=== PATIENT | male | born 1995 | race Caucasian/White ===

== ENCOUNTER 2017-10-26 16:42 | Emergency (ER) | payer SELFPAY ==
[~2017-10-26] VITALS: Ht 175.3 cm; Wt 70.3 kg
[2017-10-26 18:00] LABS: ABSOLUTE BASOPHIL COUNT 0 /CUMM (0.0-0.2); ABSOLUTE EOSINOPHIL COUNT 0.1 /CUMM (0.0-0.7); ABSOLUTE GRANULOCYTE CT 3.6 /CUMM (1.4-6.5); ABSOLUTE LYMPH COUNT 2.1 /CUMM (1.2-3.4); ABSOLUTE MONOCYTE COUNT 0.3 /CUMM (0.10-0.60); BASOPHIL % 0.4 % (0.0-2.0); EOSINOPHIL % 1.4 % (0-5); GRANULOCYTE % 58.6 % (42.2-75.2); HEMATOCRIT 42.3 % (42-52); MEAN CORPUSCULAR HGB CONC 34.4 G/DL (33.0-37.0); MEAN CORPUSCULAR VOLUME 87.2 FL (80.0-94.0); MEAN PLATELET VOLUME 8.6 FL (7.4-10.4); PLATELET COUNT 185 /CUMM (130-400); RBC DISTRIBUTION WIDTH 14.1 % (11.5-14.5); RED BLOOD CELL CT 4.85 /CUMM (4.70-6.10); WHITE BLOOD CELL COUNT 6.1 /CUMM (4.8-10.8)
--- NOTE | 2017-10-26 18:28 | CT SCAN REPORT ---
EXAMINATION: CT HEAD WITHOUT CONTRAST CLINICAL INFORMATION: Headache COMPARISON: None TECHNIQUE: Contiguous axial imaging was performed from the skull base to vertex without intravenous administration of contrast. DLP: 621.60 mGy-cm FINDINGS: There is no evidence of acute intracranial hemorrhage or territorial infarction. No abnormal mass effect or midline shift is seen. Oliva to white matter differentiation is well preserved. No extra-axial fluid collections are identified. The ventricles are normal in size. There is no abnormal attenuation within the brain parenchyma. The osseous structures and soft tissues are normal. The mastoid air cells and visualized portions of the paranasal sinuses are well aerated. IMPRESSION: No acute intracranial pathology.
--- NOTE | 2017-10-26 18:39 | ED GENERAL ADULT ---
History of Present Illness General Chief Complaint: General Adult Stated Complaint: PER MOM ACTING STRANGE "MULTI COMPLAINTS" Source: patient Exam Limitations: no limitations Vital Signs & Intake/Output Vital Signs & Intake/Output Vital Signs Date Time Temp Pulse Resp B/P B/P Pulse O2 O2 Flow FiO2 Mean Ox Delivery Rate 10/26 2009 97.7 57 18 121/78 100 Room Air 10/26 1648 97.3 79 20 123/71 98 Room Air Allergies Coded Allergies: codeine (Severe, HIVES 10/26/17) diphenhydramine (From BENADRYL) (Intermediate, HYPERACTIVITY 10/26/17) Triage Note: REPORTS TO HAVE NO BALANCE. MOM IS REQUESTING HE IS EVALUATED BECAUSE HE IS NOT ACTING LIKE HIMSELF. ADMITTS TO SMOKING WEED. Triage Nurses Notes Reviewed? yes Onset: Abrupt Duration: day(s): (1-2), constant, continues in ED, getting worse Timing: single episode today Injury Environment: home Severity: mild, moderate No Modifying Factors: none HPI: 22-year-old male past medical history of asthma, ADHD PRESENTS FOR evaluation of altered mental status. According to the mom patient has not been acting himself for the past 1-2 days. She reports she has been lethargic, having problems with short-term memory, having problems with balance and appears "intoxicated. Patient admits to smoking large amounts of marijuana daily however reports that the other people's with local marijuana with her not acting like him. He denies using any other drugs. Denies alcohol use. 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 He presented with altered mental status at this time as well. Patient denies any fever or rashes tick bites or joint pains. No chest pain shortness of breath nausea vomiting dizziness lightheadedness or any other concerns. When questioned the patient states he has no concerns. (Wilber Tucker) Past History Travel History Traveled to [place] past 21 day No Medical History Any Pertinent Medical History? see below for history Respiratory: asthma Psychiatric: ADHD Surgical History Surgical History: non-contributory Psychosocial History What is your primary language Arabic Tobacco Use: Current Daily Use Daily Tobacco Use Amount/Type: => 5 Cigarettes daily Family History Hx Contributory? No (Wilber Tucker) Review of Systems Review of Systems Constitutional: Reports: no symptoms. EENTM: Reports: no symptoms. Respiratory: Reports: no symptoms. Cardiovascular: Reports: no symptoms. GI: Reports: no symptoms. Genitourinary: Reports: no symptoms. Musculoskeletal: Reports: no symptoms. Skin: Reports: no symptoms. Neurological/Psychological: Reports: no symptoms. Hematologic/Endocrine: Reports: no symptoms. Immunologic/Allergic: Reports: no symptoms. All Other Systems: Reviewed and Negative (Wilber Tucker) Physical Exam Physical Exam General Appearance: well developed/nourished, no apparent distress, alert, awake , lethargic Head: atraumatic, normal appearance Eyes: Bilateral: normal appearance, PERRL, EOMI. Ears, Nose, Throat: normal pharynx, normal ENT inspection, hearing grossly normal Neck: normal inspection, supple, full range of motion Respiratory: normal breath sounds, chest non-tender, no respiratory distress, lungs clear Cardiovascular: regular rate/rhythm, normal peripheral pulses Peripheral Pulses: 2+ radial (R), 2+ radial (L) Gastrointestinal: normal bowel sounds, soft, non-tender, no organomegaly Back: normal inspection, normal range of motion Extremities: normal inspection, normal capillary refill, normal range of motion, no edema Neurologic/Psych: no motor/sensory deficits, awake, alert, oriented x 3, normal gait, normal mood/affect, payroll manager II-XII nml as tested, CEREBELLAR TESTING INTACT Skin: intact, normal color, warm/dry Core Measures ACS in differential dx? No CVA/TIA Diagnosis: No Sepsis Present: No Sepsis Focused Exam Completed? No (Wilber Tucker) Progress Differential Diagnoses I considered the following diagnoses in my evaluation of the patient: [Drug intoxication, drug withdrawal, intracranial mass, intracranial hemorrhage, electrolyte ABN, sepsis, meningitis] Plan of Care: Orders Procedure Date/time Status EKG 10/26 1757 Active LYME TITRE 10/26 1723 Active URINE DRUG SCREEN FOR ER ONLY 10/26 1648 Complete ETHANOL 10/26 164 Complete COMPREHENSIVE METABOLIC PANEL 10/27 1647 Complete CBC WITHOUT DIFFERENTIAL 10/27 1647 Complete Laboratory Tests 10/26/17 1738: Anion Gap 12, Estimated GFR > 60, BUN/Creatinine Ratio 26.3 H, Glucose 80, Calcium 9.9, Total Bilirubin 0.9, AST 21, ALT 20 L, Alkaline Phosphatase 45, Total Protein 7.5, Albumin 4.6, Globulin 2.9, Albumin/Globulin Ratio 1.6, CBC w Diff NO MAN DIFF REQ, RBC 4.85, MCV 87.2, MCH 30.0, MCHC 34.4, RDW 14.1, MPV 8.6 , Gran % 58.6, Lymphocytes % 34.6, Monocytes % 5.0, Eosinophils % 1.4, Basophils % 0.4, Absolute Granulocytes 3.6, Absolute Lymphocytes 2.1, Absolute Monocytes 0.3, Absolute Eosinophils 0.1, Absolute Basophils 0, Lyme Disease Antibody Pending, Serum Alcohol < 10.0 10/26/17 1725: Urine Opiates Screen < 100, Methadone Screen < 40, Barbiturate Screen < 60, Ur Phencyclidine Scrn < 6.00, Amphetamines Screen 155, U Benzodiazepines Scrn > 800 H, Urine Cocaine Screen < 50, Urine Cannabis Screen 79.50 H Seen and evaluated. Initial evaluation appears lethargic and somewhat intoxicated slurring his words. He is neurologically intact. Labs EKG CT scan of the head ordered. Patient WILL be monitored. Urine drug screen shows high levels of benzodiazepines. Patient is not prescribed these. On further questioning patient reports using large amounts of Xanax yesterday and this morning. He states he has not used in the past and does not use them every day. Denies any history of benzo withdrawal. Denies any other drug use. The patient's lethargy issues with with balance slurred speech correlate with benzodiazepine intoxication. Patient has now been in the emergency department for 3-1/2 hours and appears to be coming back to his baseline. He is now awake and alert he has a steady gait he is no longer lethargic family believes he is back to his baseline. Discussed the patient but the dangers of benzodiazepine use and dependence and included withdrawal seizures. He is given a list of outpatient drug detox centers. Advised him to also follow-up with his primary care doctor discussed return precautions in detail. Patient agrees the plan. Diagnostic Imaging: Viewed by Me: CT Scan. Discussed w/RAD: CT Scan. Radiology Impression: PATIENT: MARGARITA HINDS PRESENT AGE: 22 PATIENT ACCOUNT NO: [id number] : 97 LOCATION: [facility] ORDERING PHYSICIAN: Wilber HUSSEIN SERVICE DATE: 10/26/17 EXAM TYPE: CAT - CT HEAD WO IV CONTRAST EXAMINATION: CT HEAD WITHOUT CONTRAST CLINICAL INFORMATION: Headache COMPARISON: None TECHNIQUE: Contiguous axial imaging was performed from the skull base to vertex without intravenous administration of contrast. DLP: 621.60 mGy-cm FINDINGS: There is no evidence of acute intracranial hemorrhage or territorial infarction. No abnormal mass effect or midline shift is seen. Oliva to white matter differentiation is well preserved. No extra-axial fluid collections are identified. The ventricles are normal in size. There is no abnormal attenuation within the brain parenchyma. The osseous structures and soft tissues are normal. The mastoid air cells and visualized portions of the paranasal sinuses are well aerated. IMPRESSION: No acute intracranial pathology. DICTATED BY: Reggei Milligan MD DATE/TIME DICTATED:10/26 RULING TECHNICIAN:RACHELLE DATE/TIME TRANSCRIBED:10/26/171820 CONFIDENTIAL, DO NOT COPY WITHOUT APPROPRIATE AUTHORIZATION. <Electronically signed in Other Vendor System> SIGNED BY: Reggie Milligan MD 10/26/171827 Initial ED EKG: normal sinus rhythm, no ST T wave changes (Wilber Tucker) Departure Departure Disposition: HOME OR SELF CARE Condition: Stable Clinical Impression Primary Impression: Benzodiazepine intoxication Referrals: Guero WINSTON,Nghia Burdick (PCP/Family) Additional Instructions: Avoid use of benzodiazepines. Make a follow-up appointment with a primary care doctor to review all results of today's visit. Also see attached list of outpatient drug treatment centers. Return to the emergency department with any concerns at any time. Departure Forms: Customer Survey General Discharge Information (Wilber Tucker) PA/TECHNICAL ADJUSTER Co-Sign Statement Statement: ED Attending supervision documentation- [] I saw and evaluated the patient. I have also reviewed all the pertinent lab results and diagnostic results. I agree with the findings and the plan of care as documented in the PA's/TECHNICAL ADJUSTER's documentation. [X] I have reviewed the ED Record and agree with the PA's/TECHNICAL ADJUSTER's documentation. [] Additions or exceptions (if any) to the PAs/TECHNICAL ADJUSTER's note and plan are summarized below: [] (Ki WINSTON,Nasir Dumont) Critical Care Note Critical Care Note Critical Care Time: non-applicable (Wilber Tucker)
[2017-10-26 20:10] VITALS: BP 121/78
== END 2017-10-26 20:17 ==
LOC: ERH 16:42
PROVIDERS: Physician Assistant Medical
DX: F13.129 Sedative, hypnotic or anxiolytic abuse with intoxication, unspecified (principal); R53.83 Other fatigue; R41.82 Altered mental status, unspecified
CPT/HCPCS: 86618; 80307; 93005; 93010; G0480